=== PATIENT | female | born 1990 | race Caucasian/White ===

== ENCOUNTER 2024-10-23 15:40 | Outpatient (CLI) | payer MEDICAID, SELFPAY ==
[2024-10-27 04:47] LABS: Trichomonas Vaginalis, NAA Negative (Negative)
[2024-10-28 00:07] LABS: Neisseria gonorrhoeae, NAA Negative (Negative)
== END 2024-10-23 23:59 | disposition home or self-care (01) ==
LOC: LAB.DROPOF 10-24 14:36
PROVIDERS: PCP Nurse Practitioner; Visit Provider Nurse Practitioner
DX: B19.20 Unspecified viral hepatitis C without hepatic coma (principal); R00.0 Tachycardia, unspecified; Z11.3 Encounter for screening for infections with a predominantly sexual mode of transmission
CPT/HCPCS: 87491; 87591; 87661